=== PATIENT | male | born 1960 | race Caucasian/White ===

== ENCOUNTER 2023-04-12 06:19 | Day surgery (SDC) | payer BC ==
[~2023-04-12 06:19] MED LIST: Sodium Chloride 0.9% 10 ML Syringe FLUSH PRN; Sodium Chloride 0.9% 10 ML Syringe FLUSH SCH
[2023-04-12] MEDS: Lactated Ringers 1,000 ML IV SCH ×2 (06:30→07:37)
[2023-04-12] MEDS ORDERED: Propofol 200 MG/20 ML SDV ONE (07:08)
[2023-04-12] MEDS ORDERED: Lidocaine 1% 4 ML ONE (07:10)
[2023-04-12] MEDS ORDERED: dexmedeTOMIDine HCl 200 MCG/2 ML SDV ONE (07:19)
[2023-04-12] MEDS ORDERED: ePHEDrine 50 MG/ML SDV ONE (08:25)
== END 2023-04-12 09:22 | disposition home or self-care (01) ==
LOC: JD.SDS 06:19
PROVIDERS: ATTEND Family Medicine
DX: Z12.11 Encounter for screening for malignant neoplasm of colon (principal); K57.30 Diverticulosis of large intestine without perforation or abscess without bleeding; I10 Essential (primary) hypertension; E11.69 Type 2 diabetes mellitus with other specified complication; E66.01 Morbid (severe) obesity due to excess calories; Z68.42 Body mass index [BMI] 45.0-49.9, adult; G47.33 Obstructive sleep apnea (adult) (pediatric); Z79.85 Long-term (current) use of injectable non-insulin antidiabetic drugs; Z79.84 Long term (current) use of oral hypoglycemic drugs; Z79.899 Other long term (current) drug therapy; Z88.6 Allergy status to analgesic agent; Z88.8 Allergy status to other drugs, medicaments and biological substances
CPT/HCPCS: 45378; J2704; J7120; J3490